=== PATIENT | male | born 1935 | race Caucasian/White ===

== ENCOUNTER 2019-10-18 10:46 | Outpatient (CLI) | payer MEDICARE, MEDICAID, SELFPAY ==
[2019-10-18 11:24] LABS: Hematocrit 34.9 % (37.0-46.0); Hemoglobin 11.2 g/dL (12.4-15.3); Mean Corpuscular HGB Conc 32.1 g/dL (32.0-36.0); Mean Corpuscular Hemoglobin 27.7 pg (27.0-31.0); Mean Corpuscular Volume 86.2 fL (78.0-102.0); Mean Platelet Volume 8.5 fl (8.7-11.0); Platelet Count Result 210 K/mm3 (150-420); Red Blood Count 4.05 M/mm3 (4.70-6.10); Red Cell Distribution Width 17.3 % (11.6-14.4); White Blood Count 11.9 K/mm3 (4.8-10.8)
[2019-10-18 11:42] LABS: Add Urine Microscopic? YES; Appearance Urine Cloudy (Clear); Bilirubin Urine Negative (Negative); Blood Urine 3+ (Negative); Color Urine Yellow (Yellow); Glucose Urine UA Negative (Negative); Ketones Urine Negative (Negative); Leukocyte Esterase Ur 2+ (Negative); Nitrate Urine Positive (Negative); Protein Urine 2+ (Negative); Specific Grav Ur 1.025 (1.010-1.020); Urobilinogen Urine 0.2 mg/dL (0.2-1.0); pH Urine 5.5 (5.0-8.0)
[2019-10-18 11:44] LABS: Bacteria Urine Trace /hpf; RBC Urine 0-2 /hpf (0-2); Squamous Epithelial Cell Urine Rare /hpf (Few); WBC Urine >75 /hpf (0-3)
[2019-10-18 12:15] LABS: Alanine Aminotransferase 19 U/L (16-63); Albumin Level 2.9 g/dL (3.4-5.0); Alkaline Phosphatase 105 U/L (46-116); Anion Gap 13.1 mmol/L (7-16); Aspartate Amino Transferase 15 U/L (15-37); Bilirubin,Total 0.3 mg/dL (0.00-1.00); Blood Urea Nitrogen 25 mg/dL (7-18); Calcium 8.9 mg/dL (8.5-10.1); Carbon Dioxide 30 mmol/L (21-32); Chloride 101 mmol/L (98-108); Estimated Glomerular Filt Rate 47; Glucose 116 mg/dL (70-99); Osmolality Calculated 295 mOsm/kg (285-295); Potassium 4.1 mmol/L (3.5-5.1); Sodium 140 mmol/L (136-145); Total Protein 7.2 g/dL (6.4-8.2)
--- NOTE | 2019-10-18 13:21 | PC.NURSE ---
frail elderly white male here for goode insertion. Incont of stool. davy care completed and new depends. #16 goode inserted per oil refinery process technician. immediate return of 30ml of cloudy yellow urine. tolerated well. pt is demented and hard to get himunderstand the purpose of goode. did explain all to nephew and he claims he understood. and has had one in the past himself. discharged to nephew.
== END 2019-10-18 10:47 | disposition home or self-care (01) ==
PROVIDERS: PCP Family Medicine; Visit Provider Family Medicine
DX: R33.9 Retention of urine, unspecified (principal)
CPT/HCPCS: 36415; 51702; 80053; 81001; 85027

== ENCOUNTER 2019-10-26 09:46 | Outpatient (CLI) | payer MEDICARE, SELFPAY ==
--- NOTE | ~2019-10-26 | XR_ITS ---
XR chest 2V DATE: 10/26/2019 10:36 INDICATION: Cough TECHNIQUE: PA and lateral views COMPARISON: None FINDINGS: The lungs are hyperinflated. There is bilateral mild apical capping, with some chronic bila teral upper lobe scarring and volume loss and mild elevation of the anderson. No pulmonary infiltrate or consolidation is detected. There is minimal blunting of the costophrenic a ngles. Very small pleural effusions are not excluded. No hilar or mediastinal enlargement. Normal heart size. IMPRESSION: Bilateral hyperinflation Chronic bilateral apical scarring Reviewed, dictated and finalized at location A.
[2019-10-26 10:00] LABS: Hematocrit 34.5 % (37.0-46.0); Hemoglobin 10.9 g/dL (12.4-15.3); Mean Corpuscular HGB Conc 31.6 g/dL (32.0-36.0); Mean Corpuscular Hemoglobin 27.5 pg (27.0-31.0); Mean Corpuscular Volume 86.9 fL (78.0-102.0); Mean Platelet Volume 8.6 fl (8.7-11.0); Platelet Count Result 261 K/mm3 (150-420); Red Blood Count 3.97 M/mm3 (4.70-6.10); White Blood Count 11.3 K/mm3 (4.8-10.8)
[2019-10-26 10:31] LABS: Anion Gap 12.4 mmol/L (7-16); Blood Urea Nitrogen 25 mg/dL (7-18); Calcium 9.1 mg/dL (8.5-10.1); Carbon Dioxide 30 mmol/L (21-32); Chloride 103 mmol/L (98-108); Estimated Glomerular Filt Rate 60; Glucose 119 mg/dL (70-99); Osmolality Calculated 297 mOsm/kg (285-295); Potassium 4.4 mmol/L (3.5-5.1); Sodium 141 mmol/L (136-145)
== END 2019-10-26 09:47 | disposition home or self-care (01) ==
LOC: CHSIMG 09:49
PROVIDERS: PCP Family Medicine; Visit Provider Family Medicine
DX: R05 Cough (principal)
CPT/HCPCS: 36415; 71046; 80048; 85027

== ENCOUNTER 2019-11-13 10:11 | Emergency (ER) | payer MEDICARE, MEDICAID, SELFPAY ==
[2019-11-13 10:14] VITALS: BP 116/65; PULSE 93; RESP 18; TEMP 37.3; O2SAT 97
[2019-11-13 10:52] LABS: Basophils Percent Auto 0.4 % (0.2-1.2); Eosinophils Absolute Auto 0.4 K/mm3 (0-0.3); Eosinophils Percent Auto 5.1 % (0-4.4); Hematocrit 36.9 % (42.0-52.0); Hemoglobin 11.8 g/dL (14.0-18.0); Immature Granulocyte Absolute 0.02 K/mm3 (0.00-0.031); Immature Granulocyte Percent A 0.3 % (0-0.5); Lymphocytes Absolute Auto 0.59 K/mm3 (0.9-3.2); Lymphocytes Percent Auto 8.1 % (18.3-44.2); Mean Corpuscular Hemoglobin 27.7 pg (26-34); Mean Corpuscular Volume 86.6 fl (80-100); Mean Platelet Volume 9.3 fl (7.4-10.4); Monocytes Absolute Auto 0.7 K/mm3 (0.1-0.6); Monocytes Percent Auto 9.3 % (2.6-8.5); Neutrophils Absolute Auto 5.6 K/mm3 (1.3-6.7); Neutrophils Percent Auto 76.8 % (45.5-73.1); Platelet Count Result 148 k/mm3 (150-375); Red Blood Count 4.26 M/mm3 (4.6-6.20); Red Cell Distribution Width 18.2 % (11.5-14.5); White Blood Count 7.3 K/mm3 (4.5-10.0)
[2019-11-13 10:57] LABS: Add Urine Microscopic? YES; Appearance Urine Cloudy (Clear); Bacteria Urine Trace /hpf; Bilirubin Urine Negative (Negative); Blood Urine 2+ (Negative); Color Urine Yellow (Yellow); Glucose Urine UA Negative (Negative); Ketones Urine Negative (Negative); Leukocyte Esterase Ur 2+ LEU/UL (Negative); Mucus Urine Rare /lpf; Nitrate Urine Positive (Negative); Protein Urine 2+ mg/dL (Negative); RBC Urine >75 /hpf (0-2); Specific Grav Ur 1.015 (1.001-1.035); Squamous Epithelial Cell Urine Rare /hpf (Few); Urobilinogen Urine Negative mg/dL (<2.0); WBC Urine 51-75 /hpf
[2019-11-13 11:05] LABS: Blood Urea Nitrogen 24 mg/dL (9-20); Calcium 9.5 mg/dL (8.4-10.2); Carbon Dioxide 31 mmol/L (22-30); Chloride 102 mmol/L (98-107); Estimated CRCL calculation 35 ml/min; Estimated Glomerular Filt Rate > 60; Glucose 108 mg/dL (75-110); Potassium 4.6 mmol/L (3.4-5.0); Sodium 137 mmol/L (137-145)
[2019-11-13 11:34] VITALS: BP 155/72; PULSE 76; RESP 17; O2SAT 96
--- NOTE | 2019-11-13 11:51 | ED.MALEGU ---
HPI - Male Genitourinary General Chief complaint: Urogenital-Male Stated complaint: goode problem Time Seen by Provider: 11/13/19 10:19 History of Present Illness HPI Narrative: Patient is an 84-year-old male who presents with some blood in his Goode catheter. He is also had increased sediment in there. Noticed it mainly today. Reports couple days ago the anchor to his thigh came loose and they had purchased a new one that does not hold the catheter properly. The thing may be its pulling. They have not noticed any fevers or chills. Patient has dementia and has no other complaints. Patient is scheduled to see Dr. Edwards in 3 days for possible removal of the catheter. The catheter was originally placed due to a side effect of a medication for dementia. The patient does have history of bladder cancer and prostate cancer along with BPH. Related Data Home Medications Medication Instructions Recorded Confirmed donepezil 5 mg tablet 5 mg PO .Bedtime tablet 10/18/19 Allergies Allergy/AdvReac Type Severity Reaction Status Date / Time No Known Allergies Verified 11/13/19 10:17 Review of Systems Review of Systems: ROS unobtainable: Yes unobtainable due to mental status PMFSH Social History Social History Years smoked: 6 Smoking status: Former smoker Tobacco type: cigarettes Additional smoking assessment comments: Quit 1996 Alcohol intake: never Substance use: never Substance use type: does not use Additional occupation/education comments: prior-[employer] Gender identity (if verbalized by the patient): Male Exam Narrative: Exam Narrative: GENERAL: Chronically ill-appearing, well-nourished, and in no acute distress. HEAD: Normocephalic, atraumatic. CHEST: Clear to auscultation. No respiratory distress. HEART: Regular rate and rhythm. Normal peripheral pulses. ABDOMEN: Soft, nontender, nondistended. Goode catheter in place with yellow urine and sediment noted. There is scant red blood in the urine. EXTREMITIES: Normal range of motion. No edema. SKIN: Warm, dry, no rash. NEURO: Awake and alert, clear speech. Follows commands. Course Course Emergency Course: Informed family of lab results. Patient be started on ciprofloxacin. Patient follow-up with his urologist who can determine if patient requires continued antibiotic therapy after reviewing the urine culture. Additionally we have applied a better anchor to the patient's leg to keep his Goode from pulling. Vital Signs Vital signs: Vital Signs Temperature 99.1 F 11/13/19 10:14 Pulse Rate 93 11/13/19 10:14 Respiratory Rate 18 11/13/19 10:14 Blood Pressure 116/65 11/13/19 10:14 Pulse Oximetry 97 11/13/19 10:14 Temperature 99.1 F 11/13/19 10:14 Pulse Rate 76 11/13/19 11:34 Respiratory Rate 17 11/13/19 11:34 Blood Pressure 155/72 H 11/13/19 11:34 Pulse Oximetry 96 11/13/19 11:34 MDM - Male Genitourinary Lab Data Result diagrams: 11/13/19 10:47 11/13/19 10:47 Labs: Lab Results 11/13/19 11/13/19 11/13/19 Range/Units 10:47 10:47 10:47 WBC 7.3 (4.5-10.0) K/mm3 RBC 4.26 L (4.6-6.20) M/mm3 Hgb 11.8 L (14.0-18.0) g/dL Hct 36.9 L (42.0-52.0) % MCV 86.6 (80-100) fl MCH 27.7 (26-34) pg MCHC 32.0 (32-36) g/dl RDW 18.2 H (11.5-14.5) % Plt Count 148 L (150-375) k/mm3 MPV 9.3 (7.4-10.4) fl Immature Gran % (Auto) 0.3 (0-0.5) % Neut % (Auto) 76.8 H (45.5-73.1) % Lymph % (Auto) 8.1 L (18.3-44.2) % Cascade % (Auto) 9.3 H (2.6-8.5) % Eos % (Auto) 5.1 H (0-4.4) % Baso % (Auto) 0.4 (0.2-1.2) % Lymph # (Auto) 0.59 L (0.9-3.2) K/mm3 Cascade # (Auto) 0.7 H (0.1-0.6) K/mm3 Eos # (Auto) 0.4 H (0-0.3) K/mm3 Baso # (Auto) 0.0 (0.0-0.1) K/mm3 Abs Immat Gran (auto) 0.02 (0.00-0.031) K/mm3 Absolute Neuts (auto) 5.6 (1.3-6.7) K/mm3
[2019-11-13 12:36] VITALS: BP 147/79; PULSE 79; RESP 15; O2SAT 96
== END 2019-11-13 12:30 | disposition home or self-care (01) ==
PROVIDERS: Emergency Provider Emergency Medicine; PCP Family Medicine
DX: N39.0 Urinary tract infection, site not specified (principal); Z46.6 Encounter for fitting and adjustment of urinary device; Z85.46 Personal history of malignant neoplasm of prostate; Z85.51 Personal history of malignant neoplasm of bladder; N40.0 Benign prostatic hyperplasia without lower urinary tract symptoms; Z87.891 Personal history of nicotine dependence
CPT/HCPCS: 36415; 80048; 81001; 85025; 87077; 87086; 87088; 87186; 99283